=== PATIENT | male | born 1950 | race Caucasian/White ===

== ENCOUNTER 2022-05-12 11:34 | Day surgery (SDC) | payer OTHER ==
[2022-04-27 16:37] LABS: Absolute Lymphocytes (CBC) 0.8 K/uL (0.7-4.9); Hematocrit 45.1 % (39.6-49.0); Lymphocytes % 12.7 % (15.3-44.8); MCV 95.1 fL (80-100); MPV 6.6 fL (7.6-11.3); RBC Red Blood Cell Count 4.74 M/uL (4.33-5.43)
[2022-04-27 16:40] LABS: Protime INR 1.05
[2022-04-27 16:48] LABS: Potassium 4.2 mmol/L (3.5-5.1)
--- NOTE | 2022-04-27 17:03 | RAD REPORT ---
EXAM DESCRIPTION: RAD - Chest Pa And Lat (2 Views) - 04/27/2022 4:52 pm CLINICAL HISTORY: pre op pending turp Chest pain. COMPARISON: No comparisons FINDINGS: There is a poorly defined 2 cm lung opacity seen in the left lower lobe laterally abutting the pleural surface. Elsewhere the lungs appear emphysematous. The heart is mildly enlarged in size. Recommend CT chest for follow-up evaluation of this finding.
--- NOTE | 2022-04-28 07:36 | EKG ---
Test Date: 2022-04-27 Test Time: 15:55:08 [employer]: GRETA MEASUREMENT RESULTS: Intervals: Rate: 73 TX: 160 QRSD: 84 QT: 384 QTc: 423 [place]: P: 63 TX: 160 QRS: 54 T: 65 INTERPRETIVE STATEMENTS: Normal sinus rhythm Normal ECG No previous ECG available for comparison Electronically Signed On 04-28-22 07:35:01 [employer] by Kristian Reyes
[~2022-05-12 11:34] MED LIST: Gentamicin Inj 180 MG in NA CHLORIDE 0.9% 100 ML IV SCH
[2022-05-12] MEDS ORDERED: AMPICILLIN SODIUM 2 GM/VIAL VIAL ONE (12:14)
[2022-05-12] MEDS ORDERED: Ringers Lactate 1,000 ML IV ONE ×2 (12:14→16:45)
[2022-05-12] MEDS ORDERED: FENTANYL CITR 100 MCG/2 ML ONE ×3 (15:16→16:36)
[2022-05-12] MEDS ORDERED: NS 0.9% VIAL 10 ML ONE (15:17)
[2022-05-12] MEDS ORDERED: propofoL 200 MG/20 ML VIAL IV ONE (15:17)
[2022-05-12] MEDS ORDERED: ONDANSETRON 4 MG/2 ML VIAL ONE (15:40)
[2022-05-12] MEDS ORDERED: EPHEDRINE SULF 50 MG/ML VIAL ONE (15:44)
[2022-05-12] MEDS ORDERED: CODEINE 30MG/APAP 300MG TAB PO PRN (17:13)
[2022-05-12] MEDS ORDERED: PHENAZOPYRIDINE 100MG TAB PO ONE (17:13)
--- NOTE | 2022-05-12 17:23 | P.OP ---
Date of Service: 05/12/22 Preoperative diagnosis: Benign prostatic hypertrophy with lower urinary tract obstruction and symptoms Acute urinary retention Postoperative diagnosis: Benign prostatic hypertrophy with lower urinary tract obstruction and symptoms Acute urinary retention Principal procedure: Bipolar transurethral resection of the prostate/TURP Indication for procedure: This is a 71-year-old gentleman with prior surgical history of UroLift and TURP by prior urologist who yet had persistent obstructive LUTS, and cystoscopic evaluation revealed persistence of significant apical lateral lobar hypertrophy despite a widely patent bladder neck. He also more recently suffered an immobility incident in a bathtub that resulted in rhabdomyolysis, and afterward, he was noted to be in large volume retention. Urethral Waite catheter was placed in preparation for surgery, and he was started on Macrobid antimicrobial therapy for a UTI. Findings and Operative Technique The patient was consented in the preoperative holding area before being transferred to the operative suite where general anesthesia was induced. He was given ampicillin 2 g and gentamicin 2 to 3 mg/kg IV antimicrobial prophylaxis. Pneumoboots were provided for DVT prophylaxis. He was placed in the lithotomy position, padded and secured to the table appropriately. The urethral Waite catheter was removed, his genitalia was prepped with Hibiclens. He was draped in standard fashion. The case was begun using the visual obturator along with a 26 Tongan bipolar resectoscope to traverse the urethra and into the bladder. The bladder was decompressed of fluid and urine with some debris, and surveyed in its entirety. While posteriorly there was evidence of catheter trauma with mucosal edema, no papillary mucosal lesions, foreign bodies or stones were noted throughout. There was mild to moderate trabeculation with some cellule/small diverticular formation posteriorly. The ureteral orifices were visualized and very near the site of prior resection at the bladder neck. As a result, I began resecting any residual adenoma laterally and anteriorly within the mid gland to bladder neck region. I continue that resection to the apical region of the prostate at which point, there appeared to be a very small nodule of tissue that I originally suspected to be the verumontanum. Upon repetitive review of tissue in that location that was obstructive to passage of the scope in that region, suggestive of potential nodular tissue or fibrosis, inconsistent with the feel of passage of the scope through the striated urethral sphincter, I assessed distally into the membranous urethra and identified the true verumontanum and the striated sphincter, which then identified the kissing lateral lobar hypertrophy more proximally as in the obstructing tissue due to BPH. As a result, I resected that additional tissue staying proximal to the verumontanum until the channel was widely patent. All prostate chips were removed by irrigation or E like evacuation. The entire prostatic fossa was fulgurated until completely hemostatic with the bladder decompressed. I then surveyed the channel and confirmed adequate coaptation of the striated sphincter at the level distal to the verumontanum, and it did indeed coapt. As a result, I left his bladder full and he passed a 22 Tongan three-way Waite catheter with ease. 30 cc of sterile water was placed in the balloon, and the catheter was connected to slow drip CBI with crystal-clear fluid draining. The patient was then taken out of the lithotomy position, and significant hypermobility of the hip joint was noted suggestive of either dislocation or fracture, which was likely underlying his immobility and need to ambulate using a walker or a cane. He was then awakened from general anesthesia, transferred to a stretcher, and then transferred to the recovery room in good condition. Complications: None Discharge disposition: I would like him to keep the catheter until Wednesday at which point a voiding trial can then be accomplished, and we can follow-up with him the following day with the bladder scan to ensure he is adequately emptying. 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 Should he fail to void adequately, we will arrange urodynamic evaluation as no further surgical therapy would be appropriate for any obstructive treatment. I also am discharging him home with a prescription for Bactrim, which I want him to start the day after he finishes the course of Macrobid given to him preoperatively.
[2022-05-12 18:35] VITALS: BP 126/72; TEMP 97; O2SAT 95
== END 2022-05-12 18:45 | disposition home or self-care (01) ==
LOC: OR 11:34
PROVIDERS: ATTEND Urology
PROC: 0T9B70Z Drainage of Bladder with Drainage Device, Via Natural or Artificial Opening (ICD-10-PCS; 2022-05-12)
PROC: 0VT08ZZ Resection of Prostate, Via Natural or Artificial Opening Endoscopic (ICD-10-PCS; principal; 2022-05-12 13:30)
DX: N40.1 Benign prostatic hyperplasia with lower urinary tract symptoms (principal); R33.9 Retention of urine, unspecified; N13.8 Other obstructive and reflux uropathy
CPT/HCPCS: 93005; 87088; 85025; 87086; 80048; 36415; 85610; 71046; 52601; 51702; J2704; J1580; J3010 ×3; A4216; J7120 ×2; J2405; J0290; 88305

== ENCOUNTER 2022-05-24 13:22 | Emergency (ER) | payer OTHER ==
--- OUTSIDE RECORDS SUMMARY | 2022-05-24 13:26 | XMS REPORT | Continuity of Care Document ---
:1950 Author Organization [facility] t Address [address] [place] [address] Care Team Providers Name Role Phone ANYI MIGUEL Primary Care Physician Unavailable DIANELYS Attending Clinician Unavailable DR ANYI MIGUEL Attending Clinician Unavailable [phone] Attending Clinician Unavailable Gumaro Hall Attending Clinician Unavailable Leena Attending Clinician Unavailable Shauna Attending Clinician Unavailable dianelys Attending Clinician Unavailable Juan Jose Pike Attending Clinician Unavailable ANYI MIGUEL Attending Clinician Unavailable PAWAN TRUONG Attending Clinician Unavailable Axel Jasso Attending Clinician Unavailable GAYE ORTEGA Attending Clinician Unavailable DIANELYS Admitting Clinician Unavailable DR ANYI MIGUEL Admitting Clinician Unavailable Gumaro Hall Admitting Clinician Unavailable Leena Admitting Clinician Unavailable Shauna Admitting Clinician Unavailable lamont_nito Admitting Clinician Unavailable Payers Payer Name Policy Type Policy Number Effective Date Expiration Date S ource [employer] (MEDICARE [id number] REPLACEMENT/ADVANTA GE - PPO) [employer] (MEDICARE [id number] REPLACEMENT/ADVANTA GE - PPO) [employer] (PPO) [id number] [employer]ET[employer] (MEDICARE [id number] REPLACEMENT PPO) 00:00:00 Problems Condition Condition Condition Status Onset Resolution Last Treating Co mments Source Name Details Category Date Date Treatment Clinician Date Standard Standard Problem Active [facility] chest Chest 2-02 Communi X-ray X-ray 00:00: ty abnormal Abnormal [facility] Traumatic Traumatic Problem Active [facility] rhabdomyol Rhabdomyol 2-02 Co mmuni ysis ysis 00:00: ty 00 [facility] Bilateral Bilateral Problem Active [facility] hip joint Hip Joint 2-02 Comm uni pain Pain 00:00: ty 00 [facility] Post-acute Post-acute Problem Active S [facility] COVID-19 COVID-19 2-02 Commun i 00:00: ty 00 [facility] Impaired Impaired Problem Active [facility] glucose Glucose 4-21 Communi tolerance Tolerance 00:00: ty 00 [facility] Difficulty Difficulty Problem Active [facility] swallowing Swallowing 1-20 Co mmuni 00:00: ty 00 [facility] Retinal Retinal Problem Active [place] [facility] Hypertensi Hypertensi Problem Active [facility] [facility] da disorder Disorder 00:00: [facility] Swallowed Swallowed Problem Active [facility] foreign Foreign 2-25 Communi body Body 00:00: ty 00 [facility] Rosacea Rosacea Problem Active 2018-04 [place] 1-19 Communi 00:00: ty [facility] Long-term Long-term Problem Active [facility] drug Drug 8-13 Communi therapy Therapy 00:00: ty 00 [facility] Screening Screening Problem Active [facility] for for 8-13 Communi malignant Malignant 00:00: ty neoplasm Neoplasm 00 [facility] prostate Prostate Clinic s Gastroesop Gastroesop Problem Active 2017-04 [facility] hageal hageal 2-11 Communi reflux Reflux 00:00: ty disease Disease 00 [facility] Constipati Constipati Problem Active 2017-04 [facility] on on 05-23 Communi 00:00: ty 00 [facility] Abdominal Abdominal Problem Active [facility] bloating Bloating 7- Commun i 00:00: ty 00 [facility] Essential Essential Problem Active [facility] hypertensi Hypertensi 6-05 Co mmuni on on 00:00: ty 00 [facility] Malaise Malaise Problem Active [place] 6-05 Communi 00:00: ty 00 [facility] Rosacea Rosacea Problem Active [place] 2-06 da 00:00: [facility] 00 Group Seasonal Seasonal Problem Active [place] allergic Allergic 11-02 da rhinitis Rhinitis 00:00: Medica l Group Dysphagia Dysphagia Problem Active [facility] 10-20 da 00:00: Medical 00 Group Radiology Radiology Problem Active [facility] result Result 10-20 abnormal Abnormal 00:00: Medica l Group Gastroesop Gastroesop Problem Active [facility] [place] hageal hageal 10-08 da reflux Reflux 00:00: Medical disease Disease 00 Group Constipati Constipati Problem Active [facility] on on 10-08 da 00:00: Medical 00 Group Essential Essential Problem Active [place] hypertensi Hypertensi 1-24 da on on 00:00: Medical 00 Group Acute Acute Problem Active [place] prostatiti Prostatiti 124 da s s 00:00: Medical Group [id number] BPH loc w Problem Com mon urin [facility] obs/LUTS - [facility] [id number] Urethral Problem Common pain [facility] [id number] Urinary Problem Commo n retention [facility] [id number] Bacterial Problem Comm on infection, [facility] unspecifie - [facility] d [facility] [id number] Urinary Problem Commo n tract [facility] infection, - [facility] site not [facility] [id number] S/P TURP Problem Comm on [facility] [id number] Lower Problem Common urinary [facility] tract - [facility] symptoms [facility] [id number] Posthitis Problem Comm on [facility] Allergies, Adverse Reactions, Alerts Allergy Allergy Status Severity Reaction(s) Onset Inactive Treating Comm ents Source Name Type Date Date Clinician CIPROFLO DA Active UNKNOWN El [facility] SULFAMET DA Active UNKNOWN El HOXAZOLE [facility] Bactrim Allergy Active [place] [facility] Cipro Allergy Active [place] [facility] Ciproflo Allergy Active [place] to [facility] Social History Social Habit Start Date Stop Date Quantity Comments Source History of Tobacco Use Co mmon [facility] Sex Assigned At Com keri [facility] Smoking Status Start Date Stop Date Source Never Smoker Common [facility] Medications Ordered Filled Start Stop Current Ordering Indication Dosage Frequency Signature Comments Components Source Medication Medication Date Date Medication? Clinician (SIG) Name Name Denishabiivanna Macrobid 2022- No 1{capsu QD Macrobid 100 MG 100 MG 05-06 le_with 100 MG 00:00: 00:00 _food} 00 :00 Macrobid Macrobid 2022- No 1{capsu QD Macrobid 100 MG 100 MG 05-06 le_with 100 MG 00:00: 00:00 _food} 00 :00 Clotrimazol Clotrimazol 2021-04- No 1{appli BID Clotrimazo e-Betametha e-Betametha 0-06 10-20 cation} le-Betamet sone 1-0.05 sone 1-0.05 00:00: 00:00 hasone % % 00 :00 1-0.05 % Flomax 0.4 Flomax 0.4 2022- No 1{capsu QD Flomax 0.4 MG MG 09-18 le} MG 00:00: 00:00 00 :00 Flomax 0.4 Flomax 0.4 2022- No 1{capsu QD Flomax 0.4 MG MG 09-18 le} MG 00:00: 00:00 00 :00 Flomax 0.4 Flomax 0.4 2022- No 1{capsu QD Flomax 0.4 MG MG 09-18 le} MG 00:00: 00:00 00 :00 metroNIDAZO metroNIDAZO No 1{appli QD metroNIDAZ LE 0.75 % LE 0.75 % cation} OLE 0.75 % Doxycycline Doxycycline No 1{capsu QD Doxycyclin Hyclate 50 Hyclate 50 le} e Hyclate MG MG 50 MG amLODIPine amLODIPine No 1{table QD amLODIPine Besylate 10 Besylate 10 t} Besylate MG MG 10 MG Enalapril-h Enalapril-h No 1{table QD Enalapril- ydroCHLOROt ydroCHLOROt t} hydroCHLOR hiazide hiazide Othiazide 10-25 MG 10-25 MG 10-25 MG Pantoprazol Pantoprazol No 1{table QD Pantoprazo e Sodium 40 e Sodium 40 t} le Sodium MG MG 40 MG metroNIDAZO metroNIDAZO No 1{appli QD metroNIDAZ LE 0.75 % LE 0.75 % cation} OLE 0.75 % amLODIPine amLODIPine No 1{table QD amLODIPine Besylate 10 Besylate 10 t} Besylate MG MG 10 MG Doxycycline Doxycycline No 1{capsu QD Doxycyclin Hyclate 50 Hyclate 50 le} e Hyclate MG MG 50 MG Enalapril-h Enalapril-h No 1{table QD Enalapril- ydroCHLOROt ydroCHLOROt t} hydroCHLOR hiazide hiazide Othiazide 10-25 MG 10-25 MG 10-25 MG Pantoprazol Pantoprazol No 1{table QD Pantoprazo e Sodium 40 e Sodium 40 t} le Sodium MG MG 40 MG metroNIDAZO metroNIDAZO No 1{appli QD metroNIDAZ LE 0.75 % LE 0.75 % cation} OLE 0.75 % amLODIPine amLODIPine No 1{table QD amLODIPine Besylate 10 Besylate 10 t} Besylate MG MG 10 MG Doxycycline Doxycycline No 1{capsu QD Doxycyclin Hyclate 50 Hyclate 50 le} e Hyclate MG MG 50 MG Enalapril-h Enalapril-h No 1{table QD Enalapril- ydroCHLOROt ydroCHLOROt t} hydroCHLOR hiazide hiazide Othiazide 10-25 MG 10-25 MG 10-25 MG Pantoprazol Pantoprazol No 1{table QD Pantoprazo e Sodium 40 e Sodium 40 t} le Sodium MG MG 40 MG Pantoprazol Pantoprazol No 1{table QD Pantoprazo e Sodium 40 e Sodium 40 t} le Sodium MG MG 40 MG amLODIPine amLODIPine No 1{table QD amLODIPine Besylate 10 Besylate 10 t} Besylate MG MG 10 MG Enalapril-h Enalapril-h No 1{table QD Enalapril- ydroCHLOROt ydroCHLOROt t} hydroCHLOR hiazide hiazide Othiazide 10-25 MG 10-25 MG 10-25 MG Pantoprazol Pantoprazol No 1{table QD Pantoprazo e Sodium 40 e Sodium 40 t} le Sodium MG MG 40 MG amLODIPine amLODIPine No 1{table QD amLODIPine Besylate 10 Besylate 10 t} Besylate MG MG 10 MG Enalapril-h Enalapril-h No 1{table QD Enalapril- ydroCHLOROt ydroCHLOROt t} hydroCHLOR hiazide hiazide Othiazide 10-25 MG 10-25 MG 10-25 MG Enalapril-h Enalapril-h No 1{table QD Enalapril- ydroCHLOROt ydroCHLOROt t} hydroCHLOR hiazide hiazide Othiazide 10-25 MG 10-25 MG 10-25 MG amLODIPine amLODIPine No 1{table QD amLODIPine Besylate 10 Besylate 10 t} Besylate MG MG 10 MG Pantoprazol Pantoprazol No 1{table QD Pantoprazo e Sodium 40 e Sodium 40 t} le Sodium MG MG 40 MG Enalapril-h Enalapril-h No 1{table QD Enalapril- ydroCHLOROt ydroCHLOROt t} hydroCHLOR hiazide hiazide Othiazide 10-25 MG 10-25 MG 10-25 MG amLODIPine amLODIPine No 1{table QD amLODIPine Besylate 10 Besylate 10 t} Besylate MG MG 10 MG Pantoprazol Pantoprazol No 1{table QD Pantoprazo e Sodium 40 e Sodium 40 t} le Sodium MG MG 40 MG amlodipine amlodipine No amlodipine [place] 10 mg 10 mg 10 mg Communi tablet TAKE tablet TAKE tablet ty ONE (1) ONE (1) TAKE ONE Hospi ta TABLET(S) TABLET(S) (1) l BY MOUTH BY MOUTH TABLET(S) Cl inics EVERY DAY. EVERY DAY. BY MOUTH EVERY DAY. enalapril enalapril No enalapril [place] 10 10 10 Communi mg-hydrochl mg-hydrochl mg-hydroch ty orothiazide orothiazide [facility] 25 mg 25 mg de 25 mg l tablet TAKE tablet TAKE tablet Clinics ONE (1) ONE (1) TAKE ONE TABLET(S) TABLET(S) (1) BY MOUTH BY MOUTH TABLET(S) EVERY DAY. EVERY DAY. BY MOUTH EVERY DAY. pantoprazol pantoprazol No pantoprazo [place] e 40 mg e 40 mg le 40 mg Commu ni tablet,jaison tablet,jaison tablet,del ty yed release yed release ayed H ospita TAKE 1 TAKE 1 release l TABLET TABLET TAKE 1 Clinics EVERY DAY EVERY DAY TABLET BY ORAL BY ORAL EVERY DAY ROUTE. ROUTE. BY ORAL ROUTE. amlodipine amlodipine No amlodipine [place] 10 mg 10 mg 10 mg Communi tablet TAKE tablet TAKE tablet ty ONE (1) ONE (1) TAKE ONE Hospi ta TABLET(S) TABLET(S) (1) l BY MOUTH BY MOUTH TABLET(S) Cl inics EVERY DAY. EVERY DAY. BY MOUTH EVERY DAY. enalapril enalapril No enalapril [place] 10 10 10 Communi mg-hydrochl mg-hydrochl mg-hydroch ty orothiazide orothiazide [facility] 25 mg 25 mg de 25 mg l tablet TAKE tablet TAKE tablet Clinics ONE (1) ONE (1) TAKE ONE TABLET(S) TABLET(S) (1) BY MOUTH BY MOUTH TABLET(S) EVERY DAY. EVERY DAY. BY MOUTH EVERY DAY. pantoprazol pantoprazol No pantoprazo [place] e 40 mg e 40 mg le 40 mg Commu ni tablet,jaison tablet,jaison tablet,del ty yed release yed release ayed H ospita TAKE 1 TAKE 1 release l TABLET TABLET TAKE 1 Clinics EVERY DAY EVERY DAY TABLET BY ORAL BY ORAL EVERY DAY ROUTE. ROUTE. BY ORAL ROUTE. phenazopyri phenazopyri No phenazopyr [place] dine 200 mg dine 200 mg idine 200 Communi tablet tablet mg tablet ty Hospita l Clinics tamsulosin tamsulosin No tamsulosin [place] 0.4 mg 0.4 mg 0.4 mg Communi capsule capsule capsule ty TAKE ONE TAKE ONE TAKE ONE Hos abby (1) (1) (1) l CAPSULE(S) CAPSULE(S) CAPSULE(S) Clinics BY MOUTH BY MOUTH BY MOUTH ONCE A DAY. ONCE A DAY. ONCE A DAY. amlodipine amlodipine No amlodipine [place] 10 mg 10 mg 10 mg Communi tablet TAKE tablet TAKE tablet ty ONE (1) ONE (1) TAKE ONE Hospi ta TABLET(S) TABLET(S) (1) l BY MOUTH BY MOUTH TABLET(S) Cl inics EVERY DAY. EVERY DAY. BY MOUTH EVERY DAY. clotrimazol clotrimazol No clotrimazo [place] e-betametha e-betametha le-betamet Communi sone 1 sone 1 hasone 1 ty %-0.05 % %-0.05 % %-0.05 % Hos abby topical topical topical l cream APPLY cream APPLY cream Clinics ONE (1) ONE (1) APPLY ONE APPLICATION APPLICATION (1) TO AFFECTED TO AFFECTED APPLICATIO AREA TWICE AREA TWICE N TO A DAY FOR A DAY FOR AFFECTED 14 DAYS. 14 DAYS. AREA TWICE A DAY FOR 14 DAYS. enalapril enalapril No enalapril [place] 10 10 10 Communi mg-hydrochl mg-hydrochl mg-hydroch ty orothiazide orothiazide [facility] 25 mg 25 mg de 25 mg l tablet TAKE tablet TAKE tablet Clinics ONE (1) ONE (1) TAKE ONE TABLET(S) TABLET(S) (1) BY MOUTH BY MOUTH TABLET(S) EVERY DAY. EVERY DAY. BY MOUTH EVERY DAY. pantoprazol pantoprazol No pantoprazo [place] e 40 mg e 40 mg le 40 mg Commu ni tablet,jaison tablet,jaison tablet,del ty yed release yed release ayed H ospita TAKE 1 TAKE 1 release l TABLET TABLET TAKE 1 Clinics EVERY DAY EVERY DAY TABLET BY ORAL BY ORAL EVERY DAY ROUTE. ROUTE. BY ORAL ROUTE. tamsulosin tamsulosin No tamsulosin [place] 0.4 mg 0.4 mg 0.4 mg Communi capsule capsule capsule ty TAKE ONE TAKE ONE TAKE ONE Hos abby (1) (1) (1) l CAPSULE(S) CAPSULE(S) CAPSULE(S) Clinics BY MOUTH BY MOUTH BY MOUTH ONCE A DAY. ONCE A DAY. ONCE A DAY. acetaminoph acetaminoph No acetaminop [place] en 300 en 300 hen 300 Communi mg-codeine mg-codeine mg-codeine ty 30 mg 30 mg 30 mg Hospita tablet TAKE tablet TAKE tablet l ONE (1) ONE (1) TAKE ONE Clini cs TABLET(S) TABLET(S) (1) BY MOUTH BY MOUTH TABLET(S) EVERY SIX EVERY SIX BY MOUTH HOURS HOURS EVERY SIX NEEDED FOR NEEDED FOR HOURS PAIN. PAIN. NEEDED FOR PAIN. amlodipine amlodipine No amlodipine [place] 10 mg 10 mg 10 mg Communi tablet TAKE tablet TAKE tablet ty ONE (1) ONE (1) TAKE ONE Hospi ta TABLET(S) TABLET(S) (1) l BY MOUTH BY MOUTH TABLET(S) Cl inics EVERY DAY. EVERY DAY. BY MOUTH EVERY DAY. clotrimazol clotrimazol No clotrimazo [place] e-betametha e-betametha le-betamet Communi sone 1 sone 1 hasone 1 ty %-0.05 % %-0.05 % %-0.05 % Hos abby topical topical topical l cream APPLY cream APPLY cream Clinics ONE (1) ONE (1) APPLY ONE APPLICATION APPLICATION (1) TO AFFECTED TO AFFECTED APPLICATIO AREA TWICE AREA TWICE N TO A DAY FOR A DAY FOR AFFECTED 14 DAYS. 14 DAYS. AREA TWICE A DAY FOR 14 DAYS. enalapril enalapril No enalapril [place] 10 10 10 Communi mg-hydrochl mg-hydrochl mg-hydroch ty orothiazide orothiazide [facility] 25 mg 25 mg de 25 mg l tablet TAKE tablet TAKE tablet Clinics ONE (1) ONE (1) TAKE ONE TABLET(S) TABLET(S) (1) BY MOUTH BY MOUTH TABLET(S) EVERY DAY. EVERY DAY. BY MOUTH EVERY DAY. pantoprazol pantoprazol No pantoprazo [place] e 40 mg e 40 mg le 40 mg Commu ni tablet,jaison tablet,jaison tablet,del ty yed release yed release ayed H ospita TAKE 1 TAKE 1 release l TABLET TABLET TAKE 1 Clinics EVERY DAY EVERY DAY TABLET BY ORAL BY ORAL EVERY DAY ROUTE. ROUTE. BY ORAL ROUTE. sulfamethox sulfamethox No sulfametho [place] azole 800 azole 800 xazole 800 Communi mg-trimetho mg-trimetho mg-trimeth ty prim 160 mg prim 160 mg oprim 160 Hospita tablet TAKE tablet TAKE mg tablet l ONE (1) ONE (1) TAKE ONE Clini cs TABLET(S) TABLET(S) (1) BY MOUTH BY MOUTH TABLET(S) TWICE A TWICE A BY MOUTH DAY. START DAY. START TWICE A TAKING THE TAKING THE DAY. START DAY AFTER DAY AFTER TAKING THE COMPLETING COMPLETING DAY AFTER THE THE COMPLETING NITROFURANT NITROFURANT THE OIN/MACROBI OIN/MACROBI NITROFURAN D. D. TOIN/MACRO BID. tamsulosin tamsulosin No tamsulosin [place] 0.4 mg 0.4 mg 0.4 mg Communi capsule capsule capsule ty TAKE ONE TAKE ONE TAKE ONE Hos abby (1) (1) (1) l CAPSULE(S) CAPSULE(S) CAPSULE(S) Clinics BY MOUTH BY MOUTH BY MOUTH ONCE A DAY. ONCE A DAY. ONCE A DAY. Align 4 mg Align 4 mg No 1capsul Q1D Align 4 mg [place] capsule capsule e(s) capsule Commun i Take 1 Take 1 Take 1 ty capsule capsule capsule Hospit a every day every day every day l by oral by oral by oral Clinic s route. route. route. amlodipine amlodipine No amlodipine [place] 10 mg 10 mg 10 mg Communi tablet TAKE tablet TAKE tablet ty ONE (1) ONE (1) TAKE ONE Hospi ta TABLET(S) TABLET(S) (1) l BY MOUTH BY MOUTH TABLET(S) Cl inics EVERY DAY. EVERY DAY. BY MOUTH EVERY DAY. enalapril enalapril No enalapril [place] 10 10 10 Communi mg-hydrochl mg-hydrochl mg-hydroch ty orothiazide [facility]thiazide [facility] 25 mg 25 mg de 25 mg l tablet TAKE tablet TAKE tablet Clinics ONE (1) ONE (1) TAKE ONE TABLET(S) TABLET(S) (1) BY MOUTH BY MOUTH TABLET(S) EVERY DAY. EVERY DAY. BY MOUTH EVERY DAY. metronidazo metronidazo No metronidaz [place] le 0.75 % le 0.75 % ole 0.75 % Communi topical gel topical gel topical ty APPLY APPLY gel APPLY Hospita TOPICALLY TOPICALLY TOPICALLY l TO AFFECTED TO AFFECTED TO C linics AREA(S) AREA(S) AFFECTED TWICE A DAY TWICE A DAY AREA(S) NEEDED. NEEDED. TWICE A DAY NEEDED. Miralax 17 Miralax 17 No 1packet Q1D Miralax 17 [place] gram oral gram oral (s) gram oral Communi powder powder powder ty packet Take packet Take packet Hospita 1 packet 1 packet Take 1 l every day every day packet Cli nics by oral by oral every day route. route. by oral route. amlodipine amlodipine No amlodipine [place] 10 mg 10 mg 10 mg Communi tablet TAKE tablet TAKE tablet ty ONE (1) ONE (1) TAKE ONE Hospi ta TABLET(S) TABLET(S) (1) l BY MOUTH BY MOUTH TABLET(S) Cl inics EVERY DAY. EVERY DAY. BY MOUTH EVERY DAY. enalapril enalapril No enalapril [place] 10 10 10 Communi mg-hydrochl mg-hydrochl mg-hydroch ty orothiazide [facility]ide [facility] 25 mg 25 mg de 25 mg l tablet TAKE tablet TAKE tablet Clinics ONE (1) ONE (1) TAKE ONE TABLET(S) TABLET(S) (1) BY MOUTH BY MOUTH TABLET(S) EVERY DAY. EVERY DAY. BY MOUTH EVERY DAY. pantoprazol pantoprazol No 1 Q1D pantoprazo [place] e 40 mg e 40 mg le 40 mg Commu ni tablet,jaison tablet,jaison tablet,del ty yed release yed release ayed H ospita Take 1 Take 1 release l tablet tablet Take 1 Clinics every day every day tablet by oral by oral every day route. route. by oral route. amlodipine amlodipine No amlodipine [place] 10 mg 10 mg 10 mg Communi tablet TAKE tablet TAKE tablet ty ONE (1) ONE (1) TAKE ONE Hospi ta TABLET(S) TABLET(S) (1) l BY MOUTH BY MOUTH TABLET(S) Cl inics EVERY DAY. EVERY DAY. BY MOUTH EVERY DAY. enalapril enalapril No enalapril [place] 10 10 10 Communi mg-hydrochl mg-hydrochl mg-hydroch ty orothiazide [facility]ide [facility] 25 mg 25 mg de 25 mg l tablet TAKE tablet TAKE tablet Clinics ONE (1) ONE (1) TAKE ONE TABLET(S) TABLET(S) (1) BY MOUTH BY MOUTH TABLET(S) EVERY DAY. EVERY DAY. BY MOUTH EVERY DAY. pantoprazol pantoprazol No pantoprazo [place] e 40 mg e 40 mg le 40 mg Commu ni tablet,jaison tablet,jaison tablet,del ty yed release yed release ayed H ospita TAKE 1 TAKE 1 release l TABLET TABLET TAKE 1 Clinics EVERY DAY EVERY DAY TABLET BY ORAL BY ORAL EVERY DAY ROUTE. ROUTE. BY ORAL ROUTE. amlodipine amlodipine No amlodipine [place] 10 mg 10 mg 10 mg da tablet TAKE tablet TAKE tablet Medical ONE (1) ONE (1) TAKE ONE Group TABLET(S) TABLET(S) (1) BY MOUTH BY MOUTH TABLET(S) EVERY DAY. EVERY DAY. BY MOUTH EVERY DAY. enalapril enalapril No enalapril [place] 10 10 10 da mg-hydrochl mg-hydrochl mg-hydroch Medical orothiazide orothiazide [facility] 25 mg 25 mg de 25 mg tablet TAKE tablet TAKE tablet ONE (1) ONE (1) TAKE ONE TABLET(S) TABLET(S) (1) BY MOUTH BY MOUTH TABLET(S) EVERY DAY. EVERY DAY. BY MOUTH EVERY DAY. pantoprazol pantoprazol No pantoprazo [place] e 40 mg e 40 mg le 40 mg da tablet,jaison tablet,jaison tablet,del Medical yed release yed release ayed G roup TAKE 1 TAKE 1 release TABLET TABLET TAKE 1 EVERY DAY EVERY DAY TABLET BY ORAL BY ORAL EVERY DAY ROUTE. ROUTE. BY ORAL ROUTE. amlodipine amlodipine No amlodipine [place] [facility] doxycycline doxycycline No doxycyclin [place] hyclate 50 hyclate 50 e hyclate da mg capsule mg capsule 50 mg Ep iscop capsule al Health Outre[facility] Program enalapril enalapril No enalapril [place] 10 10 10 da mg-hydrochl mg-hydrochl mg-hydroch [facility] orothiazide orothiazide [facility]iazi al 25 mg 25 mg de 25 mg Health tablet tablet tablet Outreac h Program pantoprazol pantoprazol No pantoprazo [place] e 40 mg e 40 mg le 40 mg da tablet,jaison tablet,jaison tablet,del [facility] yed release yed release ayed a l release Health Out[facility] Program Immunizations Ordered Immunization Filled Immunization Date Status Commen ts Source Name Name Td (adult) Td (adult) 2017-12-21 Completed [facility] ty 00:00:00 Hospital Clini Td (adult) Td (adult) 2017-12-21 Completed [place] [facility] ty 00:00:00 Hospital Clini cs Td (adult) Td (adult) 2017-12-21 Completed [place] [facility] ty 00:00:00 Hospital Clini cs Td (adult) Td (adult) 2017-12-21 Completed [place] Communi ty 00:00:00 Hospital Clini cs Td (adult) Td (adult) 2017-12-21 Completed [place] Communi ty 00:00:00 Hospital Clini cs Td (adult) Td (adult) 2017-12-21 Completed [place] Communi ty 00:00:00 Hospital Clini cs Td (adult) Td (adult) 2017-12-21 Completed [place] Communi ty 00:00:00 Hospital Clini cs Vital Signs Vital Name Observation Time Observation Value Comments Source BP Diastolic 2022-05-14 00:00:00 80 mm[Hg] [facility] Height 2022-05-14 00:00:00 69 [in_i] [facility] s BMI (Body Mass 2022-05-14 00:00:00 24.8 kg/m2 [facility] s BP Systolic 2022-05-14 00:00:00 115 mm[Hg] [facility] s Body Weight 2022-05-14 00:00:00 2688 [oz_av] [facility] s height 2022-05-06 09:15:00 69 [in_i] [facility] weight 2022-05-06 09:15:00 171.4 [lb_av] Common [facility] temperature 2022-05-06 09:15:00 97.8 [degF] Common [facility] bmi 2022-05-06 09:15:00 25.31 kg/m2 [facility] oximetry 2022-05-06 09:15:00 99 % [facility] respiratory rate 2022-05-06 09:15:00 18 /min Comm on [facility] blood pressure 2022-05-06 09:15:00 136 mm[Hg] Common [facility] blood pressure 2022-05-06 09:15:00 68 mm[Hg] Common [facility] - diastolic [facility] height 2022-02-26 16:00:00 69 [in_i] [facility] weight 2022-02-26 16:00:00 192.6 [lb_av] Common [facility] temperature 2022-02-26 16:00:00 97.9 [degF] Common [facility] bmi 2022-02-26 16:00:00 28.44 kg/m2 [facility] oximetry 2022-02-26 16:00:00 98 % [facility] respiratory rate 2022-02-26 16:00:00 18 /min Comm on [facility] blood pressure 2022-02-26 16:00:00 140 mm[Hg] Common [facility] - systolic [facility] blood pressure 2022-02-26 16:00:00 67 mm[Hg] Common [facility] - diastolic [facility] BP Diastolic 2022-02-19 00:00:00 80 mm[Hg] [facility] s Height 2022-02-19 00:00:00 69 [in_i] [facility] s BMI (Body Mass 2022-02-19 00:00:00 27.7 kg/m2 [facility] s BP Systolic 2022-02-19 00:00:00 138 mm[Hg] [facility] s Body Weight 2022-02-19 00:00:00 3004.8 [oz_av] [facility] s BP Diastolic 2021-11-13 00:00:00 70 mm[Hg] [facility] s Height 2021-11-13 00:00:00 69 [in_i] [facility] s BMI (Body Mass 2021-11-13 00:00:00 28.1 kg/m2 [facility]) [facility] s BP Systolic 2021-11-13 00:00:00 138 mm[Hg] [facility] s Body Weight 2021-11-13 00:00:00 3040 [oz_av] [facility] s BP Diastolic 2021-07-31 00:00:00 62 mm[Hg] [facility] s Height 2021-07-31 00:00:00 69 [in_i] [facility] s BMI (Body Mass 2021-07-31 00:00:00 28.5 kg/m2 [facility] s BP Systolic 2021-07-31 00:00:00 118 mm[Hg] [facility] s Body Weight 2021-07-31 00:00:00 3088 [oz_av] [facility] s BP Diastolic 2021-06-19 00:00:00 74 mm[Hg] [facility] Height 2021-06-19 00:00:00 69 [in_i] [facility] BMI (Body Mass 2021-06-19 00:00:00 29.1 kg/m2 [facility] [facility] BP Systolic 2021-06-19 00:00:00 153 mm[Hg] [facility] Body Weight 2021-06-19 00:00:00 197 [lb_av] [facility] BP Diastolic 2021-06-05 00:00:00 76 mm[Hg] [facility] Height 2021-06-05 00:00:00 69 [in_i] [facility] BMI (Body Mass 2021-06-05 00:00:00 29.4 kg/m2 [facility] Group BP Systolic 2021-06-05 00:00:00 133 mm[Hg] [facility] Body Weight 2021-06-05 00:00:00 199 [lb_av] [facility] BP Diastolic 2021-05-08 00:00:00 80 mm[Hg] [facility] Height 2021-05-08 00:00:00 69 [in_i] [facility] s BMI (Body Mass 2021-05-08 00:00:00 29.9 kg/m2 [facility] BP Systolic 2021-05-08 00:00:00 130 mm[Hg] [facility] Body Weight 2021-05-08 00:00:00 3238.4 [oz_av] [facility] BP Diastolic 2021-05-01 00:00:00 78 mm[Hg] [facility] Height 2021-05-01 00:00:00 69 [in_i] [facility] BMI (Body Mass 2021-05-01 00:00:00 30.1 kg/m2 [facility] BP Systolic 2021-05-01 00:00:00 130 mm[Hg] [facility] Body Weight 2021-05-01 00:00:00 3257.6 [oz_av] [facility] BP Diastolic 2020-09-17 00:00:00 78 mm[Hg] [facility] Height 2020-09-17 00:00:00 69 [in_i] [facility] BMI (Body Mass 2020-09-17 00:00:00 30.1 kg/m2 [facility] BP Systolic 2020-09-17 00:00:00 138 mm[Hg] [facility] Body Weight 2020-09-17 00:00:00 3257.6 [oz_av] [facility] BP Diastolic 2019-06-13 00:00:00 84 mm[Hg] [facility] Height 2019-06-13 00:00:00 69 [in_i] [facility] BMI (Body Mass 2019-06-13 00:00:00 31 kg/m2 [facility] Index) [facility] BP Systolic 2019-06-13 00:00:00 159 mm[Hg] [facility] Body Weight 2019-06-13 00:00:00 210 [lb_av] [facility] Procedures Procedure Date / Time Performing Clinician Source Performed XR, hip + pelvis, 2022-05-14 00:00:00 [facility] XR, chest, 2 view 2022-05-14 00:00:00 [facility] Cystoscopy 2021-12-11 00:00:00 [facility] Colonoscopy 2018-09-28 00:00:00 [facility] Transurethral Notrees Episco pal Prostatectomy [facility] Eye Surgery [facility] Prostate Surgery [facility] Operation on Prostate [facility] Eye Surgery Procedure [facility] Plan of Care Planned Activity Planned Date Details Comments Source Diagnostic Test 2022-05-14 [facility] kinase), total, Hospital Cli nics serum [code = CK (creatine kinase), total, serum] Diagnostic Test 2022-05-14 BMP, serum or [place] [facility] Pending 00:00:00 plasma [code = Hospital Clin ics BMP, serum or plasma] Diagnostic Test 2022-05-14 CBC [code = CBC] [place] Esteban ommunity Pending 00:00:00 [facility] Future Appointment 2022-08-[address] 13:00:[address] [address] [place] [address] Future Appointment 2022-06-[address] 00:00:00 [facility] [address], [place] [address] Encounters Start End Encounter Admission Attending Care Care Encounter Source Date/Time Date/Time Type Type Clinicians Facility Department ID 2022-05-04 Outpatient LONNYPO JORDYN [id number] El 11:43:59 [id number] [facility] 2022-01-15 [facility] [id number] Common 13:59:04 [facility] 2021-11-06 Outpatient STLMLC STLMLC [id number] Common 13:01:01 [id number] [facility] 2022-05-18 2022-05-18 ([place]) Nurse STLMLC STLMLC [id number] Common 00:00:00 00:00:00 Visit [facility] 2022-05-18 2022-05-18 Postop STLMLC STLMLC [id number] Co mmon 00:00:00 00:00:00 visit [facility] 2022-05-14 2022-05-14 Outpatient DIANELYS [facility] [id number] [place] 00:00:00 00:00:00 202 [facility] 2022-05-14 2022-05-14 Anyi Moyer [facility] [place] 00:00:00 00:00:00 Riddhi Miguel MD: [address] [facility] - [facility] Hospit a [address], [facility] [address] Clinic [place], [place], [address] LAMONT , Ph. 2022-05-04 2022-05-11 [facility] [id number] 13:48:00 16:28:00 [id number] [facility] 2022-05-09 2022-05-09 (TEL) STLMLC STLMLC [id number] Co mmon 00:00:00 00:00:00 [facility] 2022-05-06 2022-05-06 OFFICE STLMLC STLMLC [id number] Co mmon 00:00:00 00:00:00 VISIT [facility] LEVEL 4 [facility] 2022-05-02 2022-05-02 (TEL) STLMLC STLMLC [id number] Co mmon 00:00:00 00:00:00 [facility] 2022-04-14 2022-04-17 Inpatient OSWALD Hall [facility] [id number] [place] 21:51:00 15:25:00 Gumaro [id number] [facility] 2022-02-26 2022-02-26 OFFICE STLMLC STLMLC [id number] Co mmon 00:00:00 00:00:00 VISIT EST Spir it PT LEVEL 3 - CHI [facility] 2022-02-23 2022-02-23 Outpatient LAMONT_A [facility] [id number] [place] 00:00:00 00:00:00 114 [facility] 2022-02-19 2022-02-19 Outpatient LAMONT_A [facility] [id number] [place] 00:00:00 00:00:00 110 [facility] 2022-02-19 2022-02-19 Anyi Moyer [facility] [place] 110 [place] 00:00:00 00:00:00 Riddhi Miguel MD: [address] [facility] Hospit a [address], COMM[facility]ITY l [address], HOSPITAL [place], [place] CLINIC, [address] LAMONT , Ph. 2022-01-15 2022-01-15 OFFICE STLMLC STLC [id number] Co mmon 00:00:00 00:00:00 VISIT Spirit ESTAB PT - CHI LEVEL 4 [facility] 2021-11-13 2021-11-13 Outpatient LAMONT_A [facility] [id number] [place] 00:00:00 00:00:00 804 [facility] 2021-11-13 2021-11-13 Anyi Moyer [facility] [place] 804 [place] 00:00:00 00:00:00 Riddhi Miguel MD: [address] [facility] Hospit a [address], COMMUNITY l [address], [facility], [address] LAMONT , Ph. 2021-11-13 2021-11-13 Outpatient Anyi Miguel [facility] [id number] 00:00:00 00:00:00 Comfort [id number] 2021-07-31 2021-07-31 Outpatient LAMONT_Nito [facility] [id number] [place] 05:16:00 05:16:00 421 [facility] 2021-07-31 2021-07-31 Anyi Moyer [facility] [place] 421 [place] 00:00:00 00:00:00 Riddhi Miguel MD: [address] [facility] Hospit a [address], [facility] [address] Clinic [place], [address] LAMONT , Ph. 2021-07-31 2021-07-31 Outpatient Anyi Miguel [facility] [id number] 00:00:00 00:00:00 Comfort [id number] 2021-06-19 2021-06-19 Outpatient Yan_W [facility] [id number] [place] 04:11:00 04:11:00 0310 Medical Group 2021-06-19 2021-06-19 PEARL Lopez [place] - [id number] [place] 00:00:00 00:00:00 MD: Jose Guadalupe [facility] [address] [place] [address], [facility] [address] , Ph. 2021-06-11 2021-06-11 [facility] [id number] [place] 02:25:00 02:25:00 0308 [facility] 2021-06-05 2021-06-05 [facility] [id number] [place] 02:34:00 02:34:00 0224 [facility] 2021-06-05 2021-06-05 PEARL Lopez [place] - [id number] [place] 00:00:00 00:00:00 MD: Jose Guadalupe [facility] [address], Otolaryngol [facility] [address] , Ph. 2021-05-08 2021-05-08 Outpatient KEFFER_A [facility] [id number] [place] 05:43:00 05:43:00 127 [facility] 2021-05-08 2021-05-08 Outpatient Anyi Miguel [facility] [id number] 00:00:00 00:00:00 Comfort [id number] 2021-05-08 2021-05-08 Anyi Moyer [facility] [place] 127 [place] 00:00:00 00:00:00 Riddhi Miguel MD: [address] [facility] Hospit a [address], [facility] [address], [facility], [address] LAMONT , Ph. 2021-05-06 2021-05-06 Outpatient Yan_W MMG MMG [id number] [place] 04:21:00 04:21:00 0125 [facility] 2021-05-06 2021-05-06 Outpatient Yan_W MMG MMG [id number] [place] 04:21:00 04:21:00 0223 [facility] 2021-05-01 2021-05-01 Outpatient KEFFER_A [facility] [id number] [place] 04:43:00 04:43:00 120 [facility] 2021-05-01 2021-05-01 Outpatient Anyi Miguel [facility] [id number] 00:00:00 00:00:00 Comfort [id number] 2021-05-01 2021-05-01 Anyi Moyer [facility] [place] 120 [place] 00:00:00 00:00:00 Riddhi Miguel MD: [address] [facility] Hospit a [address], [facility] [address], [facility], [address] LAMONT , Ph. 2020-09-17 2020-09-17 Outpatient LAMONT_Nito [facility] [id number] [place] 12:11:00 12:11:00 608 [facility] 2020-09-17 2020-09-17 Outpatient Anyi Miguel [facility] [id number] 00:00:00 00:00:00 Comfort [id number] 2020-09-17 2020-09-17 Anyi Moyer [facility] [place] 608 [place] 00:00:00 00:00:00 Riddhi Miguel MD: [address] [facility] Hospit a [address], [facility] [address], H[facility], [address] LAMONT , Ph. 2020-06-20 2020-06-20 Outpatient Ferguson_Ro [facility] [id number] [place] 10:12:00 10:12:00 bin [id number] [facility] 2020-06-18 2020-06-18 Outpatient Ferguson_Ro MEHOP MEHOP 108 [id number] [place] 03:38:00 03:38:00 bin [id number] [facility] 2020-03-19 2020-03-19 Outpatient LAMONT_Nito [facility] [id number] [place] 05:35:00 05:35:00 208 [facility] 2020-03-18 2020-03-18 Outpatient Ferguson_Ro MEHOP MEHOP [id number] [place] 12:54:00 12:54:00 bin [id number] [facility] 2020-03-12 2020-03-12 Outpatient Ferguson_Ro MEHOP MEHOP 108 [id number] [place] 12:40:00 12:40:00 bin [id number] [facility] 2020-03-11 2020-03-11 Outpatient Ferguson_Ro MEHOP MEHOP 108 [id number] [place] 09:10:00 09:10:00 bin [id number] [facility] 2020-03-09 2020-03-09 Outpatient Ferguson_Ro [facility] ME[facility]OP [id number] [place] 10:43:00 10:43:00 bin [id number] [facility] 2020-02-28 2020-02-28 Outpatient keffer_a [facility] G 2019 [place] 02:26:00 02:26:00 1118 [facility] 2019-06-13 2019-06-13 Outpatient Ferguson_Ro [facility]OP ME[facility]OP [id number] [place] 04:46:00 04:46:00 bin [id number] [facility] 2019-06-13 2019-06-13 Juan Jose Moyer [facility] [place] - [id number] [place] 00:00:00 00:00:00 Elizabeth Pike MD: [id number] [employer] copy director [place] [address] HOP - [facility], [facility] [address], [place] [place], [facility] [address] , Ph. 2019-06-08 2019-06-08 Outpatient Ferguson_Ro MEHOP MEHOP [id number] [place] 02:42:00 02:42:00 bin [id number] [facility] 2016-12-02 2016-12-02 Outpatient MELISSA Pike [facility] [id number] [place] 08:36:00 08:36:00 Juan Jose -[id number] [facility] 2016-10-27 2016-10-27 Outpatient ANYI HERNANDEZ [facility] D00 [id number] [place] 10:47:00 10:47:00 -[id number] [facility] 2016-10-16 2016-10-17 Emergency ER TRUONG, [facility] [id number] [place] 23:47:00 03:38:00 PAWAN -[id number] [facility] 2016-10-08 2016-10-08 Outpatient ANYI HERNANDEZ [facility] D00 [id number] [place] 14:19:00 14:19:00 -[id number] [facility] 2016-10-03 2016-10-03 Emergency ER Romero, [facility] [id number] [place] 18:44:00 21:53:00 Axel -[id number] [facility] 2016-08-24 2016-08-24 Outpatient ANYI HERNANDEZ [facility] D00 [id number] [place] 12:15:00 12:15:00 -[id number] [facility] 2016-04-10 2016-04-10 Outpatient ANYI HERNANDEZ [facility] D00 [id number] [place] 08:17:00 08:17:00 -[id number] [facility] 2011-07-22 2011-07-22 Outpatient ANYI HERNANDEZ [facility] D00 [id number] [place] 13:05:00 13:05:00 -[id number] [facility] 2009-02-28 2009-02-28 Outpatient MELISSA ORTEGA [facility] [id number] [place] 07:55:00 07:55:00 GAYE [id number] [facility] 2008-06-08 2008-06-08 Outpatient MELISSA ORTEGA [facility] [id number] [place] 05:51:00 05:51:00 GAYE [id number] [facility] Results Test Description Test Time Test Comments Results Result Comments Source CBC W Auto Differential panel - Blood 2021-05-02 00:00:00 Test Item Value Reference Range Interpretation Comme nts Leukocytes [#/volume] in Blood by Automated count (test 6.8 x10e3/u L 3.4-10.8 code = 6690-2) Erythrocytes [#/volume] in Blood by Automated count 4.70 x10e6/uL 4 .14-5.80 (test code = 789-8) Hemoglobin [Mass/volume] in Blood (test code = 718-7) 14.7 g/dL 13.0-17.7 Hematocrit [Volume Fraction] of Blood by Automated count 43.8 % 37.5-51.0 (test code = 4544-3) Erythrocyte mean corpuscular volume [Entitic volume] by 93 fL 79-97 Automated count (test code = 787-2) Erythrocyte mean corpuscular hemoglobin [Entitic mass] 31.3 pg 26.6-33.0 by Automated count (test code = 785-6) Erythrocyte mean corpuscular hemoglobin concentration 33.6 g/dL 31.5-35.7 [Mass/volume] by Automated count (test code = 786-4) Erythrocyte distribution width [Ratio] by Automated 13.3 % 11 .6-15.4 count (test code = 788-0) Platelets [#/volume] in Blood by Automated count (test 288 x10e3/uL 150-450 code = 777-3) Neutrophils/100 leukocytes in Blood by Automated count 61 % not estab. (test code = 770-8) Lymphocytes/100 leukocytes in Blood by Automated count 21 % not estab. (test code = 736-9) Monocytes/100 leukocytes in Blood by Automated count 13 % n ot estab. (test code = 5905-5) Eosinophils/100 leukocytes in Blood by Automated count 4 % not estab. (test code = 713-8) Basophils/100 leukocytes in Blood by Automated count 1 % n ot estab. (test code = 706-2) immature cells (test code = immature cells) bar pointer Neutrophils [#/volume] in Blood by Automated count (test 4.1 x10e3/ uL 1.4-7.0 code = 751-8) Lymphocytes [#/volume] in Blood by Automated count (test 1.5 x10e3/ uL 0.7-3.1 code = 731-0) Monocytes [#/volume] in Blood by Automated count (test 0.9 x10e3/uL 0.1-0.9 code = 742-7) Eosinophils [#/volume] in Blood by Automated count (test 0.3 x10e3/ uL 0.0-0.4 code = 711-2) Basophils [#/volume] in Blood by Automated count (test 0.0 x10e3/uL 0.0-0.2 code = 704-7) Immature granulocytes/100 leukocytes in Blood by 0 % not e stab. Automated count (test code = 79690-7) Immature granulocytes [#/volume] in Blood by Automated 0.0 x10e3/uL 0.0-0.1 count (test code = 43793-3) Nucleated erythrocytes/100 leukocytes [Ratio] in Blood bar pointer by Automated count (test code = 50682-2) Morphology [Interpretation] in Blood Narrative (test bar pointer code = 08866-6) [facility] 2000 panel - Serum or [id number] 00:00:00 Test Item Value Reference Range Interpretation Comments Glucose [Mass/volume] in Serum 112 mg/dL 65-99 H or Plasma (test code = 2345-7) Urea nitrogen [Mass/volume] in 28 mg/dL 8-27 H Serum or Plasma (test code = 3094-0) Creatinine [Mass/volume] in 1.31 mg/dL 0.76-1.27 H Serum or Plasma (test code = 2160-0) Glomerular filtration 55 mL/min/1.73 >59 L rate/1.73 sq M.predicted among non-blacks [Volume Rate/Area] in Serum, Plasma or Blood by Creatinine-based formula (CKD-EPI) (test code = 93100-8) Glomerular filtration 63 mL/min/1.73 >59 rate/1.73 sq M.predicted among blacks [Volume Rate/Area] in Serum, Plasma or Blood by Creatinine-based formula (CKD-EPI) (test code = 05201-1) Urea nitrogen/Creatinine [Mass 21 10-24 Ratio] in Serum or Plasma (test code = 3097-3) Sodium [Moles/volume] in Serum 141 mmol/L 134-144 or Plasma (test code = 2951-2) Potassium [Moles/volume] in 4.9 mmol/L 3.5-5.2 Serum or Plasma (test code = 2823-3) Chloride [Moles/volume] in 104 mmol/L 96-106 Serum or Plasma (test code = 2075-0) Carbon dioxide, total 24 mmol/L 20-29 [Moles/volume] in Serum or Plasma (test code = 8-9) Calcium [Mass/volume] in Serum 9.6 mg/dL 8.6-10.2 or Plasma (test code = 61369-4) Protein [Mass/volume] in Serum 7.0 g/dL 6.0-8.5 or Plasma (test code = 2885-2) Albumin [Mass/volume] in Serum 4.2 g/dL 3.8-4.8 or Plasma (test code = 1751-7) Globulin [Mass/volume] in 2.8 g/dL 1.5-4.5 Serum by calculation (test code = 90220-5) Albumin/Globulin [Mass Ratio] 1.5 1.2-2.2 in Serum or Plasma (test code = 1759-0) Bilirubin.total [Mass/volume] <0.2 0.0-1.2 in Serum or Plasma (test code = 1975-2) Alkaline phosphatase 107 IU/L 44-121 [Enzymatic activity/volume] in Serum or Plasma (test code = 6768-6) Aspartate aminotransferase 18 IU/L 0-40 [Enzymatic activity/volume] in Serum or Plasma (test code = 1920-8) Alanine aminotransferase 15 IU/L 0-44 [Enzymatic activity/volume] in Serum or Plasma (test code = 1742-6) [facility] ClinicsUrinalysis complete W Reflex Culture panel - [id number] 00:00:00 Test Item Value Reference Range Interpretation Comments Specific gravity of Urine by Test 1.018 1.005-1.030 strip (test code = 5811-5) pH of Urine by Test strip (test 6.5 5.0-7.5 code = 5803-2) Color of Urine (test code = yellow yellow 5778-6) Appearance of Urine (test code = clear clear 5767-9) Leukocyte esterase [Presence] in negative negative Urine by Test strip (test code = 5799-2) Protein [Presence] in Urine by negative negative/trace Test strip (test code = 22694-8) Glucose [Presence] in Urine by negative negative Test strip (test code = 08294-6) Ketones [Presence] in Urine by negative negative Test strip (test code = 2514-8) Hemoglobin [Presence] in Urine by negative negative Test strip (test code = 5794-3) Bilirubin.total [Presence] in negative negative Urine by Test strip (test code = 5770-3) Urobilinogen [Mass/volume] in 0.2 mg/dL 0.2-1.0 Urine by Test strip (test code = 82184-6) Nitrite [Presence] in Urine by negative negative Test strip (test code = 5802-4) Microscopic observation see below: [Identifier] in Urine sediment by Light microscopy (test code = 63823-5) Leukocytes [#/area] in Urine none seen 0-5 sediment by Microscopy high power field (test code = 5821-4) Erythrocytes [#/area] in Urine none seen 0-2 sediment by Microscopy high power field (test code = 89999-9) Epithelial cells [#/area] in Urine none seen 0-10 sediment by Microscopy high power field (test code = 5787-7) Epithelial cells.renal [#/area] in bar pointer Urine sediment by Microscopy high power field (test code = 18083-1) Casts [Presence] in Urine sediment none seen none seen by Light microscopy (test code = 99936-7) Casts [Type] in Urine sediment by bar pointer Light microscopy (test code = 73527-6) Unidentified crystals [Presence] bar pointer in Urine sediment by Light microscopy (test code = 5783-6) Crystals [type] in Urine sediment bar pointer by Light microscopy (test code = 5782-8) Mucus [Presence] in Urine sediment bar pointer by Light microscopy (test code = 8247-9) Bacteria [#/area] in Urine none seen none seen/few sediment by Microscopy high power field (test code = 5769-5) Yeast [#/area] in Urine sediment bar pointer by Microscopy high power field (test code = 5822-2) Trichomonas vaginalis [Presence] bar pointer in Urine sediment by Light microscopy (test code = 5813-1) Urine sediment comments by Light bar pointer microscopy Narrative (test code = 94125-1) urinalysis reflex (test code = comment urinalysis reflex) [facility] panel - Serum or [id number] 00:00:00 Test Item Value Reference Range Interpretation Comments Cholesterol [Mass/volume] in Serum 185 mg/dL 100-199 or Plasma (test code = 2093-3) Triglyceride [Mass/volume] in Serum 190 mg/dL 0-149 H or Plasma (test code = 2571-8) Cholesterol in HDL [Mass/volume] in 56 mg/dL >39 Serum or Plasma (test code = 2085-9) Cholesterol in VLDL [Mass/volume] 32 mg/dL 5-40 in Serum or Plasma by calculation (test code = 67019-7) Cholesterol in LDL [Mass/volume] in 97 mg/dL 0-99 Serum or Plasma by calculation (test code = 90373-5) Laboratory comment [Text] in Report bar pointer Narrative (test code = 47060-3) [facility] + T4, [id number] 00:00:00 Test Item Value Reference Range Interpretation Comments Thyrotropin [Units/volume] in 2.820 uIU/mL 0.450-4.500 Serum or Plasma (test code = 3016-3) Thyroxine (T4) [Mass/volume] in 7.5 ug/dL 4.5-12.0 Serum or Plasma (test code = 3026-2) [facility] CenterHem[facility] A1c/Hemoglobin.total in Blood 2021-05-02 00:00:00 Test Item Value Reference Range Interpretation Comments Hemoglobin A1c/Hemoglobin.total in 6.5 % 4.8-5.6 H Blood (test code = 4548-4) [facility]25-Hydroxyvitamin D3+25-Hydroxyvitamin D2 [Mass/volume] in Serum or [id number] 00:00:00 Test Item Value Reference Range Interpretation Comments 25-Hydroxyvitamin 44.8 NG/mL 30.0-100.0 D3+25-Hydroxyvitamin D2 [Mass/volume] in Serum or Plasma (test code = 88661-7) [facility] CenterPS[facility], serum or [id number] 00:00:00 Test Item Value Reference Range Interpretation Comments Prostate specific Ag [Mass/volume] 0.9 NG/mL 0.0-4.0 in Serum or Plasma (test code = 2857-1) [facility] CenterUrate [Mass/volume] in Serum or Plasma 2021-05-02 00:00:00 Test Item Value Reference Range Interpretation Comments Urate [Mass/volume] in Serum or 7.1 mg/dL 3.8-8.4 Plasma (test code = 3084-1) [facility]
[2022-05-24] MEDS ORDERED: CEFTRIAXONE 1000 MG/VIAL ONE (14:16)
[2022-05-24] MEDS ORDERED: NA CHLORIDE 0.9% 1,000 ML ONE (14:16)
[2022-05-24] MEDS ORDERED: ONDANSETRON 4 MG/2 ML VIAL ONE (14:16)
[2022-05-24] MEDS ORDERED: BISACODYL 10 MG RECTAL SUPP ONE (14:16)
[2022-05-24] MEDS ORDERED: LACTULOSE 20 GM/30 ML UCUP ONE (14:16)
[2022-05-24 14:53] LABS: Absolute Lymphocytes (CBC) 1.2 K/uL (0.7-4.9); Hematocrit 40.7 % (39.6-49.0); MPV 7.2 fL (7.6-11.3); RBC Red Blood Cell Count 4.38 M/uL (4.33-5.43); Urine Bacteria <20 /HPF (<20); Urine Crystals Unidentified Few /HPF (None Seen); Urine Mucus Slight /HPF (None Seen); Urine RBC <5 /HPF (None Seen); Urine WBC Clump Rare /HPF (None Seen)
[2022-05-24 15:24] LABS: Albumin 3.3 g/dL (3.4-5.0); Bilirubin Total 0.5 mg/dL (0.2-1.0); Protein, Total 8.1 g/dL (6.4-8.2)
[2022-05-24 15:25] LABS: Potassium 4.2 mmol/L (3.5-5.1)
--- NOTE | 2022-05-24 15:59 | RAD REPORT ---
EXAM DESCRIPTION: CT - Abdomen Pelvis Wo Contrast - 05/24/2022 3:53 pm CLINICAL HISTORY: Abdominal pain. ABD PAIN COMPARISON: No comparisons TECHNIQUE: CT imaging of the abdomen and pelvis was performed without contrast. Solid organ, bowel a nd vascular assessment is limited due to lack of IV and oral contrast. All CT scans are performed using dose optimization technique as appropriate and may include automated exposure control or mA/KV adjustment according to patient size. FINDINGS: Mild linear atelectasis in both lung bases. The liver, spleen, pancreas, adrenal glands and kidneys are within normal limits for a limited non-co ntrast examination. No bowel obstruction, free air, free fluid or abscess. Sigmoid diverticulosis coli without diverticul itis. The appendix is normal. Small fat containing right inguinal hernia. The osseous structures are within normal limits. Waite catheter is in the urinary bladder. Small amount of air is present in the bladder is well. IMPRESSION: No acute intra-abdominal or pelvic findings. A limited non-contrast examination was performed as detailed.
--- NOTE | 2022-05-24 16:11 | ER ---
Nurse's Notes [facility] Name: Leonidas Gonzalez III Age: 71 yrs Sex: Male : 1950 Arrival Date: 05/24/2022 Time: 13:25 Bed 20 Private MD: Diagnosis: Other mechanical complication of urinary (indwelling) catheter;Constipation, unspecified;Hematuria, unspecified Presentation: 05/24 13:37 Chief complaint: Patient states: I had some blood around my penis and some pink in my ko1 urine. I am also having problems pooping. This is the 3rd catheter since my surgery on 05/12, this one was placed on 05/18/22. Coronavirus screen: At this time, the client does not indicate any symptoms associated with coronavirus-19. Ebola Screen: No symptoms or risks identified at this time. Initial Sepsis Screen: Does the patient meet any 2 criteria? No. Patient's initial sepsis screen is negative. Does the patient have a suspected source of infection? No. Patient's initial sepsis screen is negative. Risk Assessment: Do you want to hurt yourself or someone else? Patient reports no desire to harm self or others. Onset of symptoms was May 23, 2022 at 07:00. 13:37 Method Of Arrival: Ambulatory ko1 13:37 Acuity: LILLIE 3 ko1 Triage Assessment: 13:39 General: Appears in no apparent distress. comfortable, Behavior is calm, cooperative, ko1 appropriate for age. Pain: Denies pain. Historical: - Allergies: 13:39 No Known Allergies; ko1 - PMHx: 13:39 "blood clot in eye"; BPH; Hypertension; ko1 - Immunization history:: Adult Immunizations unknown. - Social history:: Smoking status: Patient denies any tobacco usage or history of. - Family history:: not pertinent. Screenin:44 [facility] ED Fall Risk Assessment (Adult) Score/Fall Risk Level 0 - 2 = Low Risk hb Oriented to surroundings, Maintained a safe environment, Educated pt \\T\\ family on fall prevention, incl call for assistance when getting out of bed. Abuse screen: Denies threats or abuse. Denies injuries from another. Nutritional screening: No deficits noted. Tuberculosis screening: No symptoms or risk factors identified. Assessment: 14:44 General: Appears in no apparent distress. Behavior is calm, cooperative. Pain: Denies hb pain. Neuro: Level of Consciousness is awake, alert, obeys commands, Oriented to person, place, time, situation. Cardiovascular: Patient's skin is warm and dry. Respiratory: Respiratory effort is even, unlabored, Respiratory pattern is regular, symmetrical. GI: No signs and/or symptoms were reported involving the gastrointestinal system. : Reports painless blood in catheter collection bag. EENT: No signs and/or symptoms were reported regarding the EENT system. Derm: Skin is pink, warm \\T\\ dry. Musculoskeletal: No signs and/or symptoms reported regarding the musculoskeletal system. 15:48 Reassessment: Patient appears in no apparent distress at this time. Patient and/or hb family updated on plan of care and expected duration. Pain level reassessed. Patient is alert, oriented x 3, equal unlabored respirations, skin warm/dry/pink. 17:46 Reassessment: Patient appears in no apparent distress at this time. Patient and/or hb family updated on plan of care and expected duration. Pain level reassessed. Patient is alert, oriented x 3, equal unlabored respirations, skin warm/dry/pink. Vital Signs: 13:37 BP 127 / 88; Pulse 75; Resp 18; Temp 97.1; Pulse Ox 98% ; Weight 74.84 kg; Height 5 ft. ko1 9 in. (175.26 cm); 15:30 BP 124 / 78; Pulse 72; Resp 16; Pulse Ox 99% on R/A; hb 17:46 BP 120 / 74; Pulse 77; Resp 15; Pulse Ox 99% on R/A; hb 13:37 Body Mass Index 24.37 (74.84 kg, 175.26 cm) ko1 ED Course: 13:25 Patient arrived in ED. rg4 13:39 Triage completed. ko1 13:39 Arm band placed on right wrist. Patient placed in waiting room, Patient notified of ko1 wait time. 13:50 Low Lomeli MD is Attending Physician. mendel 14:35 Inserted saline lock: 20 gauge in left forearm, using aseptic technique. Blood hb collected. 14:43 Urine Microscopic Only Sent. hb 14:43 Lipase Sent. hb 14:43 CMP Sent. hb 14:43 CBC with Diff Sent. hb 14:43 Urine Culture Sent. hb 14:44 Patient has correct armband on for positive identification. hb 15:48 Thalia Hansen, RN is Primary Nurse. hb 16:10 Andrew Polanco MD is Referral Physician. mendel 17:46 No provider procedures requiring assistance completed. IV discontinued, intact, hb bleeding controlled, No redness/swelling at site. Administered Medications: 14:43 Drug: NS 0.9% 1000 ml Route: IV; Rate: 1 bolus; Site: left forearm; hb 14:43 Drug: Zofran (Ondansetron) 4 mg Route: IVP; Site: left forearm; hb 14:43 Drug: Lactulose 30 grams Volume: 45 ml; Route: PO; hb 14:43 Drug: Dulcolax (bisacodyl) Suppository 10 mg Route: ME; hb 14:43 Drug: Rocephin (cefTRIAXone) 1 grams Route: IV; Rate: per protocol; Site: left forearm; hb Medication: 14:44 VIS not applicable for this client. hb Outcome: 16:10 Discharge ordered by . [facility] 17:46 Discharged to home ambulatory. hb 17:46 Condition: stable 17:46 Discharge instructions given to patient, Instructed on discharge instructions, follow up and referral plans. medication usage, Demonstrated understanding of instructions, follow-up care, medications, Prescriptions given X 3. 17:47 Patient left the ED. hb Signatures: Low Lomeli MD MD cha Baxter, Heather, RN RN Candi Mills rg4 Jada Hurley RN RN ko1 Corrections: (The following items were deleted from the chart) 13:41 13:37 Chief complaint: Patient states: I had some blood around my penis and some pink ko1 in my urine. I am also having problems pooping. ko1
--- NOTE | 2022-05-24 16:11 | EDPHYS ---
Physician Documentation [facility] Name: Leonidas Gonzalez III Age: 71 yrs Sex: Male : 1950 Arrival Date: 05/24/2022 Time: 13:25 Bed 20 Private MD: ED Physician Low Lomeli HPI: 05/24 14:46 This 71 yrs old Male presents to ER via Ambulatory with complaints of Problem mendel With Urinary Catheter. 14:46 The patient presents with abdominal distention in the upper abdomen, in the lower emndel abdomen. Onset: The symptoms/episode began/occurred 2 day(s) ago. The patient presents with urinary symptoms, dysuria, with russo. Onset: The symptoms/episode began/occurred 1 week(s) ago. Modifying factors: The symptoms are alleviated by nothing, the symptoms are aggravated by nothing. Associated signs and symptoms: Pertinent positives: abdominal pain, constipation. The symptoms do not radiate. Associated signs and symptoms: Pertinent positives: constipation. The symptoms are described as crampy. Severity of pain: At its worst the pain was mild in the emergency department the pain is unchanged. Historical: - Allergies: 13:39 No Known Allergies; ko1 - PMHx: 13:39 "blood clot in eye"; BPH; Hypertension; ko1 - Immunization history:: Adult Immunizations unknown. - Social history:: Smoking status: Patient denies any tobacco usage or history of. - Family history:: not pertinent. ROS: 14:46 Constitutional: Negative for fever, chills, and weight loss, Eyes: Negative for injury, mendel pain, redness, and discharge, ENT: Negative for injury, pain, and discharge, Neck: Negative for injury, pain, and swelling, Cardiovascular: Negative for chest pain, palpitations, and edema, Respiratory: Negative for shortness of breath, cough, wheezing, and pleuritic chest pain, Back: Negative for injury and pain, MS/Extremity: Negative for injury and deformity, Skin: Negative for injury, rash, and discoloration, Neuro: Negative for headache, weakness, numbness, tingling, and seizure, Psych: Negative for depression, anxiety, suicide ideation, homicidal ideation, and hallucinations, Allergy/Immunology: Negative for hives, rash, and allergies, Endocrine: Negative for neck swelling, polydipsia, polyuria, polyphagia, and marked weight changes, Hematologic/Lymphatic: Negative for swollen nodes, abnormal bleeding, and unusual bruising. 14:46 Abdomen/GI: Positive for abdominal pain, of the right lower quadrant and left lower quadrant. 14:46 : Positive for urinary symptoms, hematuria, russo present and drainang. Exam: 14:46 Constitutional: This is a well developed, well nourished patient who is awake, alert, mendel and in no acute distress. Head/Face: Normocephalic, atraumatic. Eyes: Pupils equal round and reactive to light, extra-ocular motions intact. Lids and lashes normal. Conjunctiva and sclera are non-icteric and not injected. Cornea within normal limits. Periorbital areas with no swelling, redness, or edema. ENT: Nares patent. No nasal discharge, no septal abnormalities noted. Tympanic membranes are normal and external auditory canals are clear. Oropharynx with no redness, swelling, or masses, exudates, or evidence of obstruction, uvula midline. Mucous membranes moist. Neck: Trachea midline, no thyromegaly or masses palpated, and no cervical lymphadenopathy. Supple, full range of motion without nuchal rigidity, or vertebral point tenderness. No Meningismus. Chest/axilla: Normal chest wall appearance and motion. Nontender with no deformity. No lesions are appreciated. Cardiovascular: Regular rate and rhythm with a normal S1 and S2. No gallops, murmurs, or rubs. Normal PMI, no JVD. No pulse deficits. Respiratory: Lungs have equal breath sounds bilaterally, clear to auscultation and percussion. No rales, rhonchi or wheezes noted. No increased work of breathing, no retractions or nasal flaring. Back: No spinal tenderness. No costovertebral tenderness. Full range of motion. Skin: Warm, dry with normal turgor. Normal color with no rashes, no lesions, and no evidence of cellulitis. MS/ Extremity: Pulses equal, no cyanosis. Neurovascular intact. Full, normal range of motion. Neuro: Awake and alert, GCS 15, oriented to person, place, time, and situation. Cranial nerves II-XII grossly intact. Motor strength 5/5 in all extremities. Sensory grossly intact. Cerebellar exam normal. Normal gait. Psych: Awake, alert, with orientation to person, place and time. Behavior, mood, and affect are within normal limits. 14:46 Abdomen/GI: Inspection: distension, Bowel sounds: normal, active, all quadrants, Palpation: abdomen is soft and non-tender, Liver: no appreciated palpable abnormalities, Hernia: not appreciated. Vital Signs: 13:37 BP 127 / 88; Pulse 75; Resp 18; Temp 97.1; Pulse Ox 98% ; Weight 74.84 kg; Height 5 ft. ko1 9 in. (175.26 cm); 15:30 BP 124 / 78; Pulse 72; Resp 16; Pulse Ox 99% on R/A; hb 17:46 BP 120 / 74; Pulse 77; Resp 15; Pulse Ox 99% on R/A; hb 13:37 Body Mass Index 24.37 (74.84 kg, 175.26 cm) ko1 MDM: 13:50 Patient medically screened. mendel 14:51 Differential diagnosis: nonspecific abdominal pain, appendicitis, UTI, urinary mendel retention, Russo catheter problem, prostatitis, urethritis, diverticulitis, non-specific abd pain, pancreatitis, Peptic Ulcer Disease, Prostatitis, urinary tract infection. Data reviewed: vital signs, nurses notes, lab test result(s), radiologic studies, CT scan. Consideration of Admission/Observation Patient was admitted/placed on observation. Escalation of care including admission/observation considered. I considered the following discharge prescriptions or medication management in the emergency department Medications were administered in the Emergency Department. See MAR. Test considered but Not performed: Ultrasound no renal usg. Care significantly affected by the following chronic conditions: Hypertension. 05/24 13:51 Order name: CBC with Diff [facility] 05/24 13:51 Order name: CMP [facility] 05/24 13:51 Order name: Lipase [facility] 05/24 13:51 Order name: Urine Microscopic Only [facility] 05/24 13:53 Order name: Urine Culture [facility] 05/24 14:53 Order name: Urine Microscopic Only; Complete Time: 15:47 EDMS 05/24 13:51 Order name: CT Abd/Pelvis - PO Contrast Only: gastrograffin [facility] 05/24 15:01 Order name: CBC with Automated Diff; Complete Time: 15:47 EDMS 05/24 15:26 Order name: Comprehensive Metabolic Panel; Complete Time: 15:47 EDMS 05/24 15:26 Order name: Lipase; Complete Time: 15:47 EDMS 05/24 15:59 Order name: CT; Complete Time: 16:09 EDCT 05/24 13:51 Order name: IV Saline Lock; Complete Time: 14:43 [facility] 05/24 13:51 Order name: Labs collected and sent; Complete Time: 14:43 [facility] 05/24 13:51 Order name: Urine Dipstick-Ancillary (obtain specimen); Complete Time: 14:43 [facility] Administered Medications: 14:43 Drug: NS 0.9% 1000 ml Route: IV; Rate: 1 bolus; Site: left forearm; hb 14:43 Drug: Zofran (Ondansetron) 4 mg Route: IVP; Site: left forearm; hb 14:43 Drug: Lactulose 30 grams Volume: 45 ml; Route: PO; hb 14:43 Drug: Dulcolax (bisacodyl) Suppository 10 mg Route: NH; hb 14:43 Drug: Rocephin (cefTRIAXone) 1 grams Route: IV; Rate: per protocol; Site: left forearm; hb Disposition Summary: 05/24/22 16:10 Discharge Ordered Location: Home mendel Problem: new mendel Symptoms: have improved mendel Condition: Stable mendel Diagnosis - Other mechanical complication of urinary (indwelling) catheter mendel - Constipation, unspecified mendel - Hematuria, unspecified mendel Followup: mendel - With: Private Physician - When: 2 - 3 days - Reason: Recheck today's complaints, Continuance of care, Re-evaluation by your physician Followup: mendel - With: - When: 2 - 3 days - Reason: Recheck today's complaints, Re-evaluation by your physician Discharge Instructions: - Discharge Summary Sheet mendel - Constipation, Adult mendel - Indwelling Urinary Catheter Care, Adult mendel - Hematuria, Adult mendel - Constipation, Adult, [id number] mendel - Indwelling Urinary Catheter Care, Adult, [id number] mendel - Chronic Constipation mendel Forms: - Medication Reconciliation Form mendel - Thank You Letter mendel - Antibiotic Education mendel - Prescription Opioid Use mendel Prescriptions: - Cipro 250 mg Oral Tablet - take 1 tablet by ORAL route every 12 hours; 14 tablet; Refills: 0, Product mendel Selection Permitted - Colace 100 mg Oral Capsule - take 1 tablet by ORAL route every 12 hours; 20 tablet; Refills: 0, Product mendel Selection Permitted - Lactulose 10 gram/15 mL Oral Solution - take 30 milliliters by ORAL route once daily; 300 milliliter; Refills: 0, mendel Product Selection Permitted Signatures: Dispatcher [employer] Low Kuo MD MD cha Waters, Shelly, [employer] Thalia Hansen, RN RN Jada Kirby RN RN ko1
[2022-05-24 17:59] VITALS: TEMP 97.1
[2022-05-24 18:10] VITALS: O2SAT 99
[2022-05-24 18:11] VITALS: BP 120/74
== END 2022-05-24 17:47 | disposition home or self-care (01) ==
LOC: ER 13:22
DX: T83.098A Other mechanical complication of other urinary catheter, initial encounter (principal); K59.00 Constipation, unspecified; R31.9 Hematuria, unspecified; I10 Essential (primary) hypertension
CPT/HCPCS: 87088; 85025; 87086; 36415; 81015; 83690; 80053; 74176; 96375; 96374; 99284; J7030; J2405